=== PATIENT | female | born 1985 | race Two or more races ===

== ENCOUNTER 2019-01-04 06:07 | Inpatient (IN) | payer OTHER ==
[~2019-01-04] VITALS: Ht 165.1 cm; Wt 85.3 kg
[2019-01-05] MEDS ORDERED: PROFERRIN-FORT1 EACH PO (08:09)
[2019-01-05] MEDS ORDERED: PRENATAL MULTI1 EAC3 PO (08:11)
== END 2019-01-06 11:30 | disposition home or self-care (01) | DRG 807 ==
LOC: LDR 06:07 → OB/GYN 06:07
PROVIDERS: ADMIT Obstetrics & Gynecology
PROC: 10E0XZZ Delivery of Products of Conception, External Approach (ICD-10-PCS; principal; 2019-01-04)
PROC: 10907ZC Drainage of Amniotic Fluid, Therapeutic from Products of Conception, Via Natural or Artificial Opening (ICD-10-PCS; 2019-01-04)
PROC: 4A1HXCZ Monitoring of Products of Conception, Cardiac Rate, External Approach (ICD-10-PCS; 2019-01-04)
DX: O80 Encounter for full-term uncomplicated delivery (principal); Z37.0 Single live birth; Z3A.39 39 weeks gestation of pregnancy